=== PATIENT | female | born 2000 | race Caucasian/White ===

== ENCOUNTER 2019-10-29 12:59 | Outpatient (CLI) | payer OTHER, SELFPAY ==
[2019-10-31 22:21] LABS: SARS-CoV-2 RNA Undetected (Undetected); SARS-CoV-2 Specimen Source Nasopharynx
== END 2019-10-29 13:19 ==
PROVIDERS: PCP Emergency Medicine; Visit Provider Emergency Medicine
DX: Z11.59 Encounter for screening for other viral diseases (principal)
CPT/HCPCS: U0003

== ENCOUNTER 2021-01-21 14:44 | Outpatient (REF) | payer OTHER, SELFPAY ==
[2021-01-23 10:57] LABS: COVID-19 RT-PCR UVMMC Result Negative (Negative)
== END 2021-01-21 14:45 | disposition home or self-care (01) ==
LOC: LBN 14:44
PROVIDERS: PCP Emergency Medicine; Visit Provider Nurse Practitioner Family
DX: Z20.822 Contact with and (suspected) exposure to COVID-19 (principal)
CPT/HCPCS: U0003

== ENCOUNTER 2021-01-29 16:41 | Outpatient (REF) | payer OTHER, SELFPAY ==
[2021-02-01 16:43] LABS: Chlamydia Result Negative (Negative); GC Result Negative (Negative)
== END 2021-01-29 16:42 | disposition home or self-care (01) ==
LOC: LBN 16:41
PROVIDERS: PCP Emergency Medicine; Visit Provider Nurse Practitioner Family
DX: Z11.3 Encounter for screening for infections with a predominantly sexual mode of transmission (principal)
CPT/HCPCS: 87491; 87591